=== PATIENT | female | born 1965 | race Caucasian/White ===

== ENCOUNTER 2016-11-08 15:28 | Emergency (ER) | payer BC, OTHER ==
[2016-11-08] MEDS ORDERED: OPTIRAY 350 100 ML VIAL HMH IV ONE (15:29)
[2016-11-08] MEDS ORDERED: SODIUM CHLORIDE 0.9% 1,000 ML ONE (18:23)
[2016-11-08] MEDS ORDERED: MORPHINE 4 MG/ML SYR ONE ×3 (18:24→20:38)
[2016-11-08] MEDS ORDERED: ONDANSETRON 4 MG VIAL ONE (18:24)
== END 2016-11-08 21:20 | disposition home or self-care (01) ==
LOC: ER 15:28
DX: R10.2 Pelvic and perineal pain (principal); N76.0 Acute vaginitis; R19.00 Intra-abdominal and pelvic swelling, mass and lump, unspecified site
CPT/HCPCS: 36415; 74177; 80053; 81003; 83690; 84703; 85025; 87491; 87591; 87800; 96361; 96374; 96375; 96376

== ENCOUNTER 2016-11-10 05:46 | Inpatient (IN) | payer BC, OTHER ==
[2016-11-10] VITALS (16 sets, daily range): BP systolic 120–140; RESP 14–18; TEMP 97.4–98.2
[2016-11-10] MEDS ORDERED: CEFAZOLIN 2,000 MG in SODIUM CHLORIDE 0.9% 100 ML IV ONE (06:15)
[2016-11-10] MEDS ORDERED: GLYCOPYRROLATE 0.2 MG/ML VIAL IV ONE ×2 (06:40→13:57)
[2016-11-10] MEDS ORDERED: LIDOCAINE 1% BUFFERED 1 ML SYR INTRADERM PRN (06:40)
[2016-11-10] MEDS ORDERED: MIDAZOLAM 2 MG/2 ML INJ IV ONE (06:40)
[2016-11-10] MEDS ORDERED: SCOPOLAMINE PATCH TRANSDERM ONE (06:40)
[2016-11-10] MEDS ORDERED: LACT RINGERS 1,000 ML IV SCH (06:40)
[2016-11-10] MEDS ORDERED: ONDANSETRON 4 MG VIAL IV PRN (08:50)
[2016-11-10] MEDS ORDERED: MORPHINE 2 MG/ML SYR IV PRN (08:50)
[2016-11-10] MEDS ORDERED: OXYCODONE 5 MG TAB PO PRN (08:50)
[2016-11-10] MEDS ORDERED: MORPHINE 4 MG/ML SYR IV PRN (08:50)
[2016-11-10] MEDS ORDERED: MEPERIDINE 25 MG/ML IV PRN (08:50)
[2016-11-10] MEDS ORDERED: MORPHINE 50 MG/50 ML PCA BAG IV SCH (10:45)
[2016-11-10] MEDS ORDERED: KETOROLAC 30 MG/ML VIAL IV PRN (10:45)
[2016-11-10] MEDS ORDERED: SALINE FLUSH 10 ML FLUSH PRN (10:45)
[2016-11-10] MEDS: DILAUDID 1 MG/ML AMP IV PRN ×2 (10:57→11:16)
[2016-11-10] MEDS: LACT RINGERS 1,000 ML IV SCH ×2 (11:41→20:19)
[2016-11-10] MEDS: PROMETHAZINE 25 MG/ML VIAL IM/IV PRN ×2 (12:13→20:18)
[2016-11-10] MEDS ORDERED: DILAUDID 1 MG/ML AMP IV ONE (13:57)
[2016-11-10] MEDS ORDERED: KETOROLAC 30 MG/ML VIAL IV ONE (13:57)
[2016-11-10] MEDS ORDERED: FENTANYL 100 MCG/2 ML AMP IV ONE (13:57)
[2016-11-10] MEDS ORDERED: NEOSTIGMINE 10 MG/10 ML VIAL IV ONE (13:57)
[2016-11-10] MEDS ORDERED: ROCURONIUM 50 MG VIAL IV ONE (13:57)
[2016-11-10] MEDS ORDERED: PHENYLEPHRINE 10 MG/ML VIAL IV ONE (13:57)
[2016-11-10] MEDS ORDERED: PROPOFOL 20 ML VIAL IV ONE (13:57)
[2016-11-10] MEDS ORDERED: ONDANSETRON 4 MG VIAL IV PUSH ONE (13:57)
[2016-11-11] VITALS (7 sets, daily range): BP systolic 116–139; RESP 16–20; TEMP 98.1–99.4
[2016-11-11] MEDS: LACT RINGERS 1,000 ML IV SCH (02:45)
[2016-11-11] MEDS ORDERED: MORPHINE 4 MG/ML SYR IV PRN (10:00)
[2016-11-11] MEDS: OXYCODONE/APAP 5/325 TAB PO PRN ×2 (13:31→20:38)
[2016-11-11] MEDS: SALINE FLUSH 10 ML FLUSH SCH (20:38)
[2016-11-11] MEDS ORDERED: DOCUSATE SOD 100 MG CAP PO ONE (21:00)
[2016-11-12 04:57] VITALS: BP_SYST 124; RESP 16; TEMP 97.7
[2016-11-12] MEDS: OXYCODONE/APAP 5/325 TAB PO PRN ×2 (05:25→10:06)
[2016-11-12] MEDS ORDERED: SODIUM CHLORIDE 0.9% FLUSH BAG 500 ML IV SCH (06:00)
[2016-11-12 07:21] VITALS: BP_SYST 98; RESP 16; TEMP 98.1
[2016-11-12] MEDS: SALINE FLUSH 10 ML FLUSH SCH (08:00)
[2016-11-12 11:38] VITALS: BP_SYST 126; RESP 16; TEMP 98.1
[2016-11-12 13:29] VITALS: BP_SYST 126; RESP 16; TEMP 98.1
[2016-11-13] MEDS ORDERED: REMOVE SCOPALAMINE PATCH XX ONE (06:40)
== END 2016-11-12 14:54 | disposition home or self-care (01) | DRG 743 ==
LOC: ENRESERVDT → ENRESERVTM → SURG 05:46 → SDS 10:50 → ENPENDDIS 10:50 → 5THE 12:08
PROVIDERS: ADMIT Obstetrics & Gynecology; ATTEND Obstetrics & Gynecology
PROC: 0UT90ZZ Resection of Uterus, Open Approach (ICD-10-PCS; principal; 2016-11-10 07:19)
PROC: 0UJD4ZZ Inspection of Uterus and Cervix, Percutaneous Endoscopic Approach (ICD-10-PCS; 2016-11-10 07:19)
PROC: 0UT20ZZ Resection of Bilateral Ovaries, Open Approach (ICD-10-PCS; 2016-11-10 07:19)
PROC: 0UT70ZZ Resection of Bilateral Fallopian Tubes, Open Approach (ICD-10-PCS; 2016-11-10 07:19)
DX: N87.9 Dysplasia of cervix uteri, unspecified (principal); I10 Essential (primary) hypertension; F17.210 Nicotine dependence, cigarettes, uncomplicated
CPT/HCPCS: 36415; 74177; 80053; 81003; 83690; 84703; 85025; 87491; 87591; 87800; 88307; 94762; 96361; 96374; 96375; 96376